=== PATIENT | male | born 1965 | race Caucasian/White ===

== ENCOUNTER 2022-12-20 14:47 | Inpatient (IN) | payer OTHER ==
[~2022-12-20] VITALS: Ht 182.9 cm; Wt 69.1 kg
[2022-12-20 15:59] LABS: Base Excess Venous 0 mmol/L; Bicarbonate Venous 23.8 mmol/L (24.0-30.0); PCO2 Venous 44.2 mmHg (38-42); pH Blood Venous 7.37 (7.34-7.37)
[2022-12-20] MEDS ORDERED: ALBU90OI INH (19:37)
[2022-12-20 20:21] VITALS: BP 113/91
[2022-12-21 02:14] VITALS: BP 96/81
[2022-12-21 05:37] LABS: Albumin, Blood 2.7 g/dL (3.4-5.0); Bilirubin, Total 1.4 mg/dL (0.1-1.0); Bun/Creatinine Ratio 30.4 (12.0-20.0); Calcium, Blood 8.4 mg/dL (8.5-10.1); Creatinine, Blood 0.99 mg/dL (0.60-1.20); Globulin, Blood 2.7 g/dL (2.2-4.0); Magnesium, Blood 1.9 mg/dL (1.6-2.4); Potassium, Blood 3.7 mmol/L (3.5-5.5); Total Protein, Blood 5.4 g/dL (6.4-8.2)
--- NOTE | 2022-12-21 05:49 | NUR ---
SHIFT SUMMARY 56 YR M ADMITTED ON 12/20/22 FOR NEW ONSET OF CHF. FULL CODE. PT WAS VERY DIRTY UPON ARRIVAL AND SHOWERED SHORTLY AFTER. PER BUSINESS LAWYER PT HAS HAD TWO BRIEF EPISODES OF SVT AND 9 SECONDS OF TRIGEMENY. HE IS SET TO HAVE AN ECHO THIS A.M. AND HAS BEEN ASYMPTOMATIC. HE HAS SLEPT FOR MOST OF THIS SHIFT BUT IS ABLE TO USE THE BEDSIDE URINAL INDEPENDANTLY. NO C/O PAIN OR DISCOMFORT THIS SHIFT. HE IS A&O X 4 AND IS PLEASANT AND COOPERATIVE WITH CARE.
[2022-12-21 07:20] VITALS: BP 107/96
--- NOTE | 2022-12-21 10:26 | NUR ---
A. FIB BIOMASS BOILER OPERATOR INFORMED THIS RN THAT PT CONVERTED INTO A.FIB WITH HR 100'S 120'S. PT ASYMPTOMATIC. NOTIFIED & AWARE, NO ORDERS RECEIVED OF YET.
[2022-12-21 10:53] LABS: U Amphetamine Screen Not Detected; U Barbituate Screen Not Detected; U Benzodiazapine Screen Not Detected; U Buprenorphine Screen Not Detected; U Cannabinoids Screen DETECTED; U Cocaine Screen Not Detected; U Methadone Screen Not Detected; U Methamphetamine Screen DETECTED; U Opiates Screen Not Detected; U Oxycodone Screen Not Detected; U Phencyclidine Screen Not Detected; U Propoxyphene Screen Not Detected
[2022-12-21 14:29] VITALS: BP 105/77
--- NOTE | 2022-12-21 18:04 | NUR ---
SHIFT SUMMARY A&O X 4. VSS. TELE SHOWS PT IN & OUT OF A.FIB, LOTS OF ECTOPY, TRI GEM, BIGEM PVC'S & SMALL 6 BEAT RUNS OF SVT & VTACH. PT DENIES CP, NAUSEA, LIGHTHEADEDNESS, DIZZINESS, WEAKNESS OR FATIGUE. MD IS AWARE. ECHO WAS DONE TODAY WITH REPORT ON CHART. PT BEING DIURESED. LASIX GIVEN ORDERED. PT IS ON RA WITH SATS >90%. NO COMPLAINTS TODAY. IS PLEASANT & COOPERATIVE WITH ALL CARE. IS INDEPENDENT IN THE ROOM FOR RESTROOM USE. CALL LIGHT WITHIN REACH, BED IN LOW POSITION.
[2022-12-21 19:39] VITALS: BP 90/56
[2022-12-22 01:54] VITALS: BP 106/89
[2022-12-22 06:37] LABS: BASOPHILS ABSOLUTE AUTO 0.02 K/mm3 (0.00-0.23); BASOPHILS PERCENT AUTO 0 % (0-2); EOSINOPHILS ABSOLUTE AUTO 0.18 K/mm3 (0.00-0.68); EOSINOPHILS PERCENT AUTO 2 % (0-6); Hematocrit 49.1 % (37.0-53.0); Hemoglobin 16.1 g/dL (13.5-17.5); IMMATURE GRAN ABSOLUTE AUTO 0.03 K/mm3 (0.00-0.10); IMMATURE GRAN PERCENT AUTO 0 % (0-1); LYMPHOCYTES ABSOLUTE AUTO 1.44 K/mm3 (0.84-5.20); LYMPHOCYTES PERCENT AUTO 13 % (21-46); MONOCYTES ABSOLUTE AUTO 0.94 K/mm3 (0.16-1.47); MONOCYTES PERCENT AUTO 8 % (4-13); Mean Corpuscular HGB Conc 32.8 g/dL (31.5-36.5); Mean Corpuscular Volume 79 fL (80-100); Mean Platelet Volume 12.1 fL (9.1-12.4); NEUTROPHILS PERCENT AUTO 77 % (41-73); Platelet Count 183 K/mm3 (150-400); RDW Coefficient Variation 14.4 % (11.7-14.2); RDW Standard Deviation 40.9 fL (35.1-46.3); Red Blood Cell Count 6.19 M/mm3 (4.30-5.90); White Blood Cell Count 11.51 K/mm3 (4.00-11.30)
--- NOTE | 2022-12-22 06:45 | NUR ---
PT AO, PLEASANT. INTERMITTENTLY YELLS WHEN ALONE. AFTER HE YELLED I ENTERED PATIENT ROOM AND ASKED IF HE IS FEELING OKAY AND IF I CAN HELP HIM, PATIENT DENIED DISCOMFORT AT THAT TIME. FREQUENT REQUESTS FOR SNACKS. NO PRN MEDS REQUESTED OR GIVEN. TELE IN PLACE, 2 INSTANCES OF SHORT RUNS OF SVT, TACHY UP TO 130'S OCASSIONALLY.
[2022-12-22 06:53] LABS: Albumin, Blood 2.6 g/dL (3.4-5.0); Anion Gap 8 mmol/L (6-16); Blood Urea Nitrogen 33 mg/dL (8-24); CO2, Blood 29 mmol/L (21-32); Calcium, Blood 8.4 mg/dL (8.5-10.1); Chloride, Blood 103 mmol/L (98-108); Creatinine, Blood 0.81 mg/dL (0.60-1.20); Glomerular Filtration Rate 103 (60-); Glucose, Blood 105 mg/dL (70-99); Magnesium, Blood 1.8 mg/dL (1.6-2.4); Phosphorus, Blood 2.5 mg/dL (2.5-4.9); Potassium, Blood 3.4 mmol/L (3.5-5.5); Sodium, Blood 140 mmol/L (136-145)
[2022-12-22 07:46] VITALS: BP 121/83
[2022-12-22 15:36] LABS: Albumin, Blood 2.5 g/dL (3.4-5.0); Anion Gap 7 mmol/L (6-16); Blood Urea Nitrogen 32 mg/dL (8-24); Bun/Creatinine Ratio 39.8 (12.0-20.0); CO2, Blood 31 mmol/L (21-32); Calcium, Blood 7.9 mg/dL (8.5-10.1); Chloride, Blood 102 mmol/L (98-108); Glomerular Filtration Rate 103 (60-); Glucose, Blood 159 mg/dL (70-99); Phosphorus, Blood 2.5 mg/dL (2.5-4.9); Potassium, Blood 3.9 mmol/L (3.5-5.5); Sodium, Blood 140 mmol/L (136-145)
[2022-12-22 15:38] VITALS: BP 103/70
--- NOTE | 2022-12-22 16:24 | NUR ---
SHIFT SUMMARY PATIENT HAS LEFT AMA. IS AWARE. THIS RN TOOK A BREAK AND WHEN RN ARRIVED BACK TO ROUND, PATIENT WAS NOWHERE TO BE FOUND. CALLED SECURITY TO LOCATE PATIENT, PATIENT WAS FOUND IN PARKING LOT ON SECURITY CAMERA, LEFT PROPERTY BY THE TIME SECURITY ARRIVED.
== END 2022-12-22 17:02 | disposition left against medical advice (07) | DRG 280 ==
LOC: ER 14:47 → MEDS 14:48
PROVIDERS: Nurse Practitioner Acute Care; Student in an Organized Health Care Education/Training Program; ADMIT Internal Medicine
DX: I50.21 Acute systolic (congestive) heart failure (principal); J96.01 Acute respiratory failure with hypoxia; I21.A1 Myocardial infarction type 2; I42.7 Cardiomyopathy due to drug and external agent; M21.961 Unspecified acquired deformity of right lower leg; F15.90 Other stimulant use, unspecified, uncomplicated; I34.0 Nonrheumatic mitral (valve) insufficiency; T43.655A Adverse effect of methamphetamines, initial encounter; I07.1 Rheumatic tricuspid insufficiency; F17.210 Nicotine dependence, cigarettes, uncomplicated; Z79.899 Other long term (current) drug therapy
CPT/HCPCS: 36415; 71046; 80053; 80069; 82803; 83735; 84484; 85025; 93005; 93010; 96374; 99285-25; A9270; C8929; G0378; J1650; J1940; Q9957

== ENCOUNTER → 2022-12-20 | Outpatient (CLI) | payer OTHER ==
[~2022-12-20] MED LIST: ALBU90OI INH
[2022-12-20 13:05] LABS: BASOPHILS ABSOLUTE AUTO 0.02 K/mm3 (0.00-0.23); BASOPHILS PERCENT AUTO 0 % (0-2); EOSINOPHILS ABSOLUTE AUTO 0.08 K/mm3 (0.00-0.68); EOSINOPHILS PERCENT AUTO 1 % (0-6); Hematocrit 49.5 % (37.0-53.0); Hemoglobin 16.5 g/dL (13.5-17.5); IMMATURE GRAN ABSOLUTE AUTO 0.05 K/mm3 (0.00-0.10); IMMATURE GRAN PERCENT AUTO 0 % (0-1); LYMPHOCYTES ABSOLUTE AUTO 1.08 K/mm3 (0.84-5.20); LYMPHOCYTES PERCENT AUTO 10 % (21-46); MONOCYTES ABSOLUTE AUTO 0.65 K/mm3 (0.16-1.47); MONOCYTES PERCENT AUTO 6 % (4-13); Mean Corpuscular HGB 26.7 pg (26.0-34.0); Mean Corpuscular HGB Conc 33.3 g/dL (31.5-36.5); Mean Corpuscular Volume 80 fL (80-100); Mean Platelet Volume 11.6 fL (9.1-12.4); NEUTROPHILS ABSOLUTE AUTO 9.42 K/mm3 (1.96-9.15); NEUTROPHILS PERCENT AUTO 83 % (41-73); Platelet Count 193 K/mm3 (150-400); RDW Coefficient Variation 15.6 % (11.7-14.2); RDW Standard Deviation 43.3 fL (35.1-46.3); Red Blood Cell Count 6.17 M/mm3 (4.30-5.90)
[2022-12-20 13:57] LABS: Albumin/Globulin Ratio 1.2 (0.8-1.8); Bilirubin, Total 1.5 mg/dL (0.1-1.0); Calcium, Blood 8.5 mg/dL (8.5-10.1); Globulin, Blood 2.5 g/dL (2.2-4.0); Magnesium, Blood 2.2 mg/dL (1.6-2.4); Potassium, Blood 4.2 mmol/L (3.5-5.5); Total Protein, Blood 5.5 g/dL (6.4-8.2)
== END | disposition home or self-care (01) ==
LOC: LAB 12:59 → LAB SHORT 12:59
PROVIDERS: Emergency Medicine
DX: R60.9 Edema, unspecified (principal)
CPT/HCPCS: 80053; 83735; 83880; 84484; 85025

== ENCOUNTER 2023-01-15 06:38 | Inpatient (IN) | payer OTHER ==
[~2023-01-15] VITALS: Ht 172.7 cm; Wt 76.0 kg
[2023-01-15] VITALS (24 sets, daily range): BP systolic 58–94; BP diastolic 43–77
[2023-01-15 07:04] LABS: BASOPHILS ABSOLUTE AUTO 0.08 K/mm3 (0.00-0.23); BASOPHILS PERCENT AUTO 0 % (0-2); EOSINOPHILS ABSOLUTE AUTO 0.01 K/mm3 (0.00-0.68); EOSINOPHILS PERCENT AUTO 0 % (0-6); Hematocrit 51.3 % (37.0-53.0); Hemoglobin 16.2 g/dL (13.5-17.5); IMMATURE GRAN PERCENT AUTO 1 % (0-1); LYMPHOCYTES ABSOLUTE AUTO 0.66 K/mm3 (0.84-5.20); LYMPHOCYTES PERCENT AUTO 3 % (21-46); MONOCYTES ABSOLUTE AUTO 1.07 K/mm3 (0.16-1.47); MONOCYTES PERCENT AUTO 5 % (4-13); Mean Corpuscular HGB 25.2 pg (26.0-34.0); Mean Corpuscular HGB Conc 31.6 g/dL (31.5-36.5); Mean Corpuscular Volume 80 fL (80-100); NEUTROPHILS ABSOLUTE AUTO 17.96 K/mm3 (1.96-9.15); NEUTROPHILS PERCENT AUTO 90 % (41-73); NRBC ABSOLUTE 0.05 K/mm3 (0.00-0.02); NRBC Auto 0.3 /100 WBC (0.0-0.2); Platelet Count 126 K/mm3 (150-400); RDW Coefficient Variation 15.2 % (11.7-14.2); RDW Standard Deviation 41.8 fL (35.1-46.3); Red Blood Cell Count 6.43 M/mm3 (4.30-5.90); White Blood Cell Count 19.88 K/mm3 (4.00-11.30)
[2023-01-15 07:07] LABS: Base Excess Venous -9.3 mmol/L; PCO2 Venous 42 mmHg (38-42); pH Blood Venous 7.24 (7.34-7.37)
[2023-01-15 07:10] LABS: Calcium, Ionized (POC) 0.89 mmol/L (1.10-1.46); Chloride (POC) 94 mmol/L (98-108); Creatinine (POC) 2.3 mg/dL (0.8-1.3); Glucose (ISTAT POC) 194 mg/dL (70-99); Hemoglobin (POC) 18.4 g/dL (13.5-17.5); Potassium (POC) 5.9 mmol/L (3.5-5.5); Sodium (POC) 124 mmol/L (135-148); Total CO2 (POC) 20 mmol/L (21-32)
[2023-01-15 07:29] LABS: Prothrombin Time Results 47.2 Sec (9.7-11.5)
[2023-01-15 07:30] LABS: Magnesium, Blood 2.6 mg/dL (1.6-2.4)
[2023-01-15 07:34] LABS: Magnesium, Blood 2.6 mg/dL (1.6-2.4)
[2023-01-15 07:42] LABS: International Normalized Ratio 4.92
[2023-01-15 08:09] LABS: Albumin, Blood 2.3 g/dL (3.4-5.0); Bilirubin, Direct 3.8 mg/dL (0.0-0.3); Bilirubin, Indirect 2.1 mg/dL (0.1-0.7); Bilirubin, Total 5.9 mg/dL (0.1-1.0); Bun/Creatinine Ratio 36.1 (12.0-20.0); Calcium, Blood 7.4 mg/dL (8.5-10.1); Creatinine, Blood 1.83 mg/dL (0.60-1.20); Globulin, Blood 2.4 g/dL (2.2-4.0); Phosphorus, Blood 8.4 mg/dL (2.5-4.9); Potassium, Blood 6.1 mmol/L (3.5-5.5); Total Protein, Blood 4.7 g/dL (6.4-8.2)
[2023-01-15 08:11] LABS: Bun/Creatinine Ratio 36.6 (12.0-20.0); Calcium, Blood 7.3 mg/dL (8.5-10.1); Creatinine, Blood 1.83 mg/dL (0.60-1.20); Potassium, Blood 6.1 mmol/L (3.5-5.5)
[2023-01-15 08:35] LABS: Calcium, Ionized (POC) 0.91 mmol/L (1.10-1.46); Chloride (POC) 96 mmol/L (98-108); Creatinine (POC) 2.2 mg/dL (0.8-1.3); Glucose (ISTAT POC) 101 mg/dL (70-99); Hemoglobin (POC) 18.4 g/dL (13.5-17.5); Potassium (POC) 5.6 mmol/L (3.5-5.5); Sodium (POC) 127 mmol/L (135-148); Total CO2 (POC) 19 mmol/L (21-32)
[2023-01-15 08:44] LABS: D-Dimer, Quantitative 19.7 mg/L FEU (0.00-0.52)
[2023-01-15 10:00] LABS: Chloride (POC) 96 mmol/L (98-108); Creatinine (POC) 2.3 mg/dL (0.8-1.3); Glucose (ISTAT POC) 84 mg/dL (70-99); Hemoglobin (POC) 18.7 g/dL (13.5-17.5); Potassium (POC) 5.5 mmol/L (3.5-5.5); Sodium (POC) 127 mmol/L (135-148); Total CO2 (POC) 19 mmol/L (21-32)
[2023-01-15 10:02] LABS: Source, Urine Foley catheter
[2023-01-15 10:11] LABS: Appearance, Urine Hazy (Clear); Bilirubin, Urine Neg (Neg); Blood, Urine 5+ (Neg); Color, Urine Yellow (P-Yellow); Glucose Qualitative, Urine Neg (Neg); Ketones, Urine Neg (Neg); Leukocyte Esterase, Urine 1+ (Neg); Nitrite, Urine Neg (Neg); Protein, Urine 3+ (Neg); Specific Gravity, Urine 1.025 (1.003-1.022); Urobilinogen, Urine 1+ (Normal)
[2023-01-15 10:43] LABS: Hyaline Casts 25-50 /lpf (0-2)
[2023-01-15 10:45] LABS: Red Blood Cells, Urine 25-50 /hpf (0-2)
[2023-01-15 10:47] LABS: Squamous Epithelial Cells Few /hpf (Few)
[2023-01-15 10:48] LABS: Bacteria Many /hpf; Mucus Mod (0-Heavy); Renal Epithelial Rare /hpf (0-Rare); Transitional Epithelial Cells Rare /hpf (0-Rare)
--- NOTE | 2023-01-15 10:51 | NUR ---
1030 PATIENT ARRIVES FROM ED WITH NOREPINEPHRINE INFUSING AT 25MCG, BODY PURPLE FROM TOES TO SCROTUM, ARMS AND ELBOWS. PIV X 3, LEFT SITE X 2 DRAWS BLOOD AND INFUSES WELL, RIGHT HAND DOESN'T DRAW BLOOD. DOPPLAR TO BILATERAL FEET ILLICITS FAINT PULSE AT HIGHEST VOLUME. WOUNDS TO BOTH ELBOWS AND BOTH KNEES, PICTURES TAKEN, AT BEDSIDE. INITIATING DOBUTAMINE.
[2023-01-15 11:50] LABS: PCO2 Arterial 48.4 mmHg (35-45); PO2 Arterial 109 mmHg (80-100); pH Blood Arterial 7.17 (7.35-7.45)
--- NOTE | 2023-01-15 11:50 | NUR ---
Pt admitted to ICU. Was initially brought in by EMS this am for SOB. He was recently diagnosed with CHF while hospitalized last month in December. He ended up leaving AMA, but not before he was made aware of the new diagnosis, and an echo showing 15% EF on 12/21/22. Pt's S/O Yris was present in ED this am, but was asked to step out of the room as pt's condition deteriorated, and he was intubated. Staff were unable to locate Yris after intubation in ED, and pt was then taken to ICU. Attempted to reach Yris by calling the only phone number on the facesheet, but the number apparently belongs to a friend named Rell. Rell was unable to give any information, only that pt has an ex- and 3 sons "in [place]", and states he has no way to get ahold of pt's s/o Yris. Copy of face sheet given to KURT Hardy. Ethics consult placed.
--- NOTE | 2023-01-15 12:04 | NUR ---
Spiritual Care Support. Pt. is being treated by staff. This slide forming machine tender attempted to call NOK (roscoe), but the only number we have is for a neighbor. At Dr. Baird's request I brought Palliative Care nurse Ary to room, who also attempted to contact the Pts. NOEMÍ. This slide forming machine tender searched the hospital waiting rooms for NOEMÍ, but could not locate the individual.
[2023-01-15 12:13] LABS: PCO2 Arterial 51.4 mmHg (35-45); pH Blood Arterial 7.17 (7.35-7.45)
--- NOTE | 2023-01-15 12:30 | NUR ---
PT CONTINUES ON THE VENTILATOR, 7.5 TUBE 23CM AT GUMS. VENT SETTINGS, 14/450 PEEP 5, FIO2 50%. PT IS ON EPINEPHRINE @ 2MCG/MIN, DOBUTAMINE @ 10 MCG/KG/MIN, NOREPINEPHRINE @ 18 MCG/MIN. VANCOMYCIN JUST STARTED. OGT TO LIS, WITH COFFEE GROUND COLORED LIQUID RETURN. MANNING WITH DARK YELLOW, CONCENTRATED RETURN, MINIMAL. BODY CONTINUES WITH PURPLE COLORING PAST KNEES/ELBOWS, SCROTUM. ART LINE AND CENTRAL LINE PLACED BY . PT WITHOUT ANY SEDATING MEDICATIONS AND HAS NOT HAD ANY PURPOSEFUL MOVEMENT OR RESPONSE TO PAINFUL STIMULI. PHOTOS OF WOUNDS TO CHART. ELBOW PROTECTORS PLACED.
[2023-01-15 13:36] LABS: Albumin, Blood 1.9 g/dL (3.4-5.0); Anion Gap 9 mmol/L (6-16); Blood Urea Nitrogen 81 mg/dL (8-24); Bun/Creatinine Ratio 42.6 (12.0-20.0); CO2, Blood 20 mmol/L (21-32); Calcium, Blood 7.1 mg/dL (8.5-10.1); Chloride, Blood 100 mmol/L (98-108); Glomerular Filtration Rate 40 (60-); Glucose, Blood 134 mg/dL (70-99); Phosphorus, Blood 8.4 mg/dL (2.5-4.9); Potassium, Blood 5.8 mmol/L (3.5-5.5); Sodium, Blood 129 mmol/L (136-145)
--- NOTE | 2023-01-15 13:46 | NUR ---
PT'S SIGNIFICANT OTHER IS HERE, PALLIATIVE AND DISPATCHER RADIOACTIVE WASTE DISPOSAL HAVE MET WITH HER. SHE IS ATTEMPTING TO GET INFORMATION TO PT'S ADULT CHILDREN. PT CONTINUES ON EPI, DOBUTAMINE, AND NOREPI WITH BICARB @ 75.
--- NOTE | 2023-01-15 14:09 | NUR ---
Ethics consult order received and processed. Case notes, social history, and prognostic trajectory reviewed. The principal is a 57 y/o male with a history of illicit narcotic use, various reported comorbitities, and a relatively bleak clinical outlook. If it is medically established that he will not benefit proportionately from ongoing invasive treatment or the deployment of life sustaining measures, and a good alex effort has been made to locate a substitute decision maker to no avail, then if two providers attest that the principal has a terminal and irreversible condition, and aggressive treatment will not stabilize him, but only be prolonging, than such care may be licitly discontinued. Thank you for this consult. Ming Lopez ThD, ISAIAS
[2023-01-15 14:27] LABS: pH Blood Arterial 7.32 (7.35-7.45)
--- NOTE | 2023-01-15 15:08 | NUR ---
Spiritual Care Visit. Pt. is intubated and not responsive. Pts. roscoe' is present and displayed evidence of grief as she is attempting to contact NOK. Crowefren' uses FB messenger to communicate as she does not have a phone number. Palliative Care nurses have been present. Prayed with Pt. and cristina. Facilitated life review. Crowefren' displays evidence of grief that comes in waves. Will conintue to be availabel to Pt. and cristina.
--- NOTE | 2023-01-15 15:26 | NUR ---
PT CONTINUES WITH LOW BP, ATTEMPTS TO TITRATE THE NOREPINEPHRINE TO KEEP PRESSURE >60 MAP. PURPLE COLORING CONTINUES, DIFFICULT TO OBTAIN A GOOD OXYGEN SATURATION WITH THE POOR PERFUSION. LACTIC ACID IS TRENDING DOWNWARD. PT WITH NO COUGH OR GAG UPON ORAL CARE, PT REMAINS WITHOUT ANY PURPOSEFUL MOVEMENT, NO WITHDRAWAL TO PAINFUL STIMULI. S/O IN ROOM, TEARFUL. ASKED IF SHE HAS SOMEONE WE COULD CALL FOR HER AND SHE SAYS SHE IS FINE. SHE HAS FALLEN ASLEEP.
--- NOTE | 2023-01-15 15:52 | NUR ---
pt having guppy like breathing with tremulous lower jaw on inspiratory phase. called with update on the reading of the echo showing EF 5-10% and a large LV thrombus. No change in patient status.
--- NOTE | 2023-01-15 16:49 | NUR ---
Called to ICU to assist with finding a decision maker for Yu. Yu is currently intubated on a vent without sedation. He is currently on three pressors. He is mottled to bilat lower extremities as well as hands and forearms. Yris is at the bedside, is also at the bedside. Yris is tearful and appears overwhelmed. Yris states that she and Yu wanted to move to [place] but they were unable to due to Yu being on parole. Emotional support provided. Yris has been attempting to message pt's sister, nephew and sons who reportedly live in [place]. Yris has never met Yu's family and has no other way other than [employer] Messenger to get a hold of them. While this television writer was at the bedside, pt's nephew messaged Yris back. Yris messaged nephew PC office phone number for joe to call. Returned to PC office. Received a call from Vernell Duckworth (pt's sister) ph# [phone]. Vernell reports Yu has not been well for many years. Updated Vernell on his status. Discussed code status, Vernell requests that Yu be a DNR. Vernell reports that both of their parents and a brother are . She is the only sibling he has left. Vernell states that Yu has three sons, Soren, Ricardo and Jack. [place] [facility] [place] [facility] and she will attempt to message Soren and Ricardo for them to call PC nurse for an update. Vernell reports Yu's family is in the [place], [place] area. Vernell's wishes for her brother's care at this time are for DNR, to remain on vent with current supportive treatments. Vernell verbalized understanding of how very ill Yu is at this time. Received a phone call from Rashad, pt's nephew, and gave him an update. Rashad's number is [phone]. Rashad stated that he agreed with his mom's wishes for his uncle to be a DNR. Rashad states that the family is in a group message chat and he will have his cousins contact PC RN. Spoke with Dr. Baird and updated him on family contacts and their desire for Yu to be a DNR. Order for DNR placed per Dr. Baird's request. Received a call from Ricardo Saleh, pt's son. Ricardo's ph # is: [phone]. He was updated on pt's condition. Ricardo states that he is in agreement with treatment plan of DNR and vent at this time. Ricardo states he cannot afford a plane ticket to come to [place]. Gave Ricardo the ICU nurses station number and encouraged him to call for updates. Also told him he can call and the nurses will put the phone to Yu's ear. Ricardo is aware that Yu is unresponsive and unable to talk at this time. Ricardo reports he will update his brother, Soren, and will have Soren call if he would like an update directly from staff. Updated nursing on plan of care. Contact phone numbers for Rashad Matt and Ricardo placed on chart. This television writer does not have the phone number for Soren at this time. PC to continue to follow for assistance with advanced care planning and family support for Yu and his family.
[2023-01-15 16:54] LABS: PCO2 Arterial 35.8 mmHg (35-45); PO2 Arterial 64.7 mmHg (80-100); pH Blood Arterial 7.39 (7.35-7.45)
--- NOTE | 2023-01-15 18:20 | NUR ---
SUMMARY: PT CONTINUES ON VENTILATOR, RATE 14, 450 vT, PEEP 5, FIO2 55%, MAINTAINING SATS AROUND 90%. NEURO: PT OPENED EYES ONCE UPON STIMULUS, HE MOVED LEFT ARM AND LEFT LEG INDE- PENDENTLY WITHOUT COMMAND, RIGHT ARM SLIGHT MOVEMENT. NO PURPOSEFUL MOVEMENT NOTED. CONTINUES WITH GUPPY BREATHING AND TREMULOUS LOWER JAW ON INSPIRATION. DOES NOT RESIST TURNS OR TREATMENT. CV: NOREPINEPHRINE @ 30MCG, EPINEPHRINE @ 4MCG, DOBUTAMINE @ 10MCG, CONTINUES WITH COOL SKIN AND MOTTLING UP BOTH ARMS AND BOTH LEGS, PETECHIAE T/O THIGHS AND PARTS OF ABDOMEN, PULSES ON FEET BY DOPPLAR ONLY. RESP: REMAINS SLIGHTLY COARSE, DIFFICULT TO GET READINGS FOR BIOXEMETRY, MAINTAINS LOW 90S. GI: OGT WITH COFFEE GROUND LIQUID RETURN, 750ML OUT THIS SHIFT. : TEMP MANNING AT GRAVITY DRAINAGE WITH AROUND 500ML OUT, DARK YELLOW SOCIAL: SEE NOTES OF PALLIATIVE AND SPIRITUAL CARE. GIRLFRIEND AT BEDSIDE.
[2023-01-15 19:34] LABS: PCO2 Arterial 36.6 mmHg (35-45); PO2 Arterial 65.7 mmHg (80-100)
--- NOTE | 2023-01-15 21:36 | NUR ---
ASSUMED CARE AT 1900 PATIENT IS INTUBATED AND STARTED ON VERSED DRIP. PATIENT WOULD BECOME AGITATED KICKING LEGS AND REACHING FOR TUBE. SEDATION ALSO NEEDED FOR VENT COMPLIANCE. MOVES ALL EXTREMITIES AND LOCALIZES TO PAIN, NO EYE OPENING AND NO EYE MOVEMENT. 02 SATS 95% ON VENT, AC VC 14/450/8/75, RR 20s. PEEP WAS INCREASED DUE TO PATIENTS 02 SATS DROPPING TO THE 70s. THICK RED SPUTUM SUCTIONED FROM ETT. LS COARSE. HR SR-ST 90s-120s. BP HYPOTENSIVE, MAINTAINING MAP >60, LEVO, EPI, DOBUTAMINE INF. OG WITH LARGE AMOUNTS OF DARK BLACK/BROWN OUTPUT, TO LIS. TEMP MANNING PATENT AND DRAINING DARK YELLOW URINE WITH SEDIMENT TO GRAVITY. FAMILY/FRIEND AT BEDSIDE. CBG INCREASING, LOW SLIDING SCALE ADDED. DR. TURNER NOTIFIED OF CRITICAL LABS.
[2023-01-16] VITALS (9 sets, daily range): BP systolic 65–97; BP diastolic 46–74
--- NOTE | 2023-01-16 02:17 | NUR ---
ATTEMPTED TURNING PATIENT TO RIGHT SIDE, PATIENT BECAME MORE HYPOTENSIVE. TURNED PATIENT BACK TOWARDS THE LEFT AND ABLE TO MAINTAIN A MAP OF 60. UNABLE TO TURN PATIENT DUE TO HIS BP AT THIS POINT
[2023-01-16 05:00] LABS: PCO2 Arterial 41.6 mmHg (35-45); PO2 Arterial 92.1 mmHg (80-100); pH Blood Arterial 7.43 (7.35-7.45)
[2023-01-16 05:56] LABS: Hematocrit 44.8 % (37.0-53.0); Hemoglobin 15.1 g/dL (13.5-17.5); Mean Corpuscular HGB 25.4 pg (26.0-34.0); Mean Corpuscular HGB Conc 33.7 g/dL (31.5-36.5); Mean Platelet Volume 12.1 fL (9.1-12.4); NRBC ABSOLUTE 0.03 K/mm3 (0.00-0.02); NRBC Auto 0.3 /100 WBC (0.0-0.2); Platelet Count 87 K/mm3 (150-400); RDW Coefficient Variation 14.2 % (11.7-14.2); RDW Standard Deviation 37.9 fL (35.1-46.3); Red Blood Cell Count 5.95 M/mm3 (4.30-5.90); White Blood Cell Count 11.34 K/mm3 (4.00-11.30)
--- NOTE | 2023-01-16 05:56 | NUR ---
SHIFT SUMMARY PATIENT REMAINS INTUBATED AND SEDATED ON VERSED. COUGH AND GAG PRESENT, LOCALIZES TO PAIN. NO EYE MOVEMENT, PUPILS EQUAL AND REACTIVE. 02 SATS 94% ON VENT 14/450/8/60%, RR 27. HR SR 90s-130s, BP HYPOTENSIVE, LEVOPHED TITRATED UP, EPI AND DOBUTAMINE REMAIN INF. OG WITH LARGE AMOUNTS OF DARK BROWN/BLACK OUTPUT, TO LIS. TEMP MANNING PATENT AND DRAINING STELLA URINE WITH SEDIMENT. UNABLE TO REPOSITION PATIENT, WHEN MOVED BP DROPS, DOES BEST TURNED TOWARDS THE LEFT. GIRLFRIEND REMAINS AT BEDSIDE.
[2023-01-16 06:09] LABS: Mean Corpuscular Volume 75 fL (80-100)
[2023-01-16 06:26] LABS: BAND PERCENT MAN 36 % (0-8); BASOPHILS PERCENT MAN 0 % (0-2); EOSINOPHILS PERCENT MAN 0 % (0-6); LYMPHOCYTES ABSOLUTE MAN 0.11 K/mm3 (0.84-5.20); LYMPHOCYTES PERCENT MAN 1 % (21-46); MONOCYTES ABSOLUTE MAN 0.22 K/mm3 (0.16-1.47); MONOCYTES PERCENT MAN 2 % (4-13); NEUTROPHILS ABSOLUTE MAN 10.99 K/mm3 (1.96-9.15); SEG NEUTROPHILS PERCENT MAN 61 % (41-73); TOTAL CELLS COUNTED 100
[2023-01-16 06:32] LABS: Prothrombin Time Results 43.2 Sec (9.7-11.5)
[2023-01-16 06:39] LABS: Albumin, Blood 1.6 g/dL (3.4-5.0); Albumin/Globulin Ratio 0.8 (0.8-1.8); Bilirubin, Total 6.9 mg/dL (0.1-1.0); Bun/Creatinine Ratio 44.2 (12.0-20.0); Calcium, Blood 6.3 mg/dL (8.5-10.1); Creatinine, Blood 2.08 mg/dL (0.60-1.20); Globulin, Blood 2.1 g/dL (2.2-4.0); International Normalized Ratio 4.48; Potassium, Blood 5.3 mmol/L (3.5-5.5); Total Protein, Blood 3.7 g/dL (6.4-8.2)
--- NOTE | 2023-01-16 08:25 | NUR ---
CARE OF PT ASSUMED AT 0700. PT ON VERSED GTT 2MG/HR FOR VENT KAMERON. PT ON MULTIPLE PRESSORS TO KEEP MAP AT OR .60. LEVOPHED AT 30MCG/MIN, EPI INITIALLY AT 4MCG/MIN AND HAS BEEN TITRATED UP TO 6MCG/MIN. DOBUTAMINE IS AT 10MCG/KG/MIN PER DR TURNER ORDER. D5 BICARB GTT AT 75CC/HR. PT CHEWS ON ORAL CARE SUCTION STRAW AND HAS COUGH. ABSENT GAG. PUPILS 3/3MM EQUAL AND SLUGGISH, NOT FIXED, BUT PT LACKS CORNEAL REFLEX. PT DOES GRIMACE TO NOXIOUS/PAINFUL STIMULI. ATTEMPTED TO TURN PT TO RIGHT SIDE AND ALSO TO BACK. MAP DROPS SIGNIFICANTLY WHILE ON RIGHT SIDE. PT PLACED BACK ON LEFT SIDE. PT IS WARM BUT HAS POOR PERIPHERAL PERFUSION. CAP REFILL>3SEC, DUSKY TOES AND FINGERS. CRITICAL INR AND +BLOOD CX'S CALLED IN TO DR TURNER. VENT 14/450/60%/8. PT'S RATE AROUND 25. SATS >90%. PT HAS SIGNIFICANT BRUISING/NECROTIC/SWELLING TISSUE TO SCROTUM/PENIS. DR TURNER GIVEN FULL UPDATE THIS AM AND IS AT BEDSIDE NOW UPDATING PT'S S/O.
--- NOTE | 2023-01-16 09:28 | NUR ---
DR TURNER TO CALL PT'S SISTER THIS AM TO UPDATE HER. VASOPRESSIN GTT STARTED.
--- NOTE | 2023-01-16 12:01 | NUR ---
PT'S SISTER STEVO UPDATED, PHONE CALL TRANSFERED TO ROOM AND PHONE HELD TO PT'S EAR SO THAT HIS SISTER COULD SPEAK TO HIM. PT'S SISTER CALLIE IS TRAVELING FROM [place] TO SEE PT. INDENTATION WITH SOME DISCOLORATION NOTED TO FOREHEAD UNDER SAT PROBE DESPITE MOVING PROBE Q2HRS. PROBE REMOVED, NOSE PROBE PLACED; WILL CHECK AND MOVE Q1HR. EPI GTT DOWN TO 4MCG. PT OCC WITH A VERY BRIEF SPIKE IN HR (SINUS) UP TO 150'S (DR TURNER AWARE). GROSS MOVEMENT NOTED TO BLE DURING BATH. PT CONTINUES TO GRIMACES W NOXIOUS STIMULI, SUCKS ON ORAL CATH DURING ORAL CARE. FIO2 DOWN TO 50%.
--- NOTE | 2023-01-16 12:49 | NUR ---
Visited Yu's room. His girlfriend is not currently at the bedside. Nursing is giving Yu a bed bath. Received an update from nursing. Per nursing apparently pt has another sister, Maldonado, who is coming from [place] to visit. This sister was not mentioned when this commercial insurance underwriter spoke with pt's sister Vernell yesterday. PC to continue to follow to assist with advanced care planning prn.
--- NOTE | 2023-01-16 13:42 | NUR ---
PT WITH INCREASED ECTOPY, HR JUMPS TO 140, SHORT NM, DROPPED P WAVES, PVC'S, PAC'S. BP UNCHANGED. EKG COMPLETED. DR TURNER CALLED AND UPDATED. ONE TIME ORDER OF DIG ORDERED.
--- NOTE | 2023-01-16 16:56 | NUR ---
PT'S SISTER'S CHIN AND CALLIE ARRIVED AND ARE AT BEDSIDE. UPDATE GIVEN. PER CALLIE, PT'S SON TERESA IS TRYING TO FLY DOWN FROM [place]. LEVOPHED AT 24MCG, EPI AT 2MCG. HEART RHTHYM INITIALLY IMPROVED AFTER DIG DOSE, BUT NOW CONTINUES TO INCREASE UP TO 140'S, WITH INCREASED ECTOPY WHEN HR LOWER; 90-110. SPO2 HAS BEEN DIFFICULT TO OBTAIN AT TIMES, BUT HAS AVERAGED BETWEEN 92-98%.
--- NOTE | 2023-01-16 17:48 | NUR ---
DR TURNER CALLED TO GIVE UPDATE, INCLUDING PERSIST. ECTOPY AND HR UP TO 150'S. EPI PLACED ON STANDY PER DR TURNER, FOLLOWED BY DOBUTAMINE DECREASED TO 7.5MCG.
--- NOTE | 2023-01-16 18:42 | NUR ---
LEVOPHED AT 22MCG, EPI OFF, VASO AT 0.04 UNITS, DOBUTAMINE AT 7.5MCG, VERSED GTT AT 2MG/HR, D5 BICARB AT 75/HR. MAP >65. HEART RATE AND RHYTHM IRREGULAR WITH ECTOPY(PAC'S, PVC'S, SHORT MO, MULTIFOCAL P WAVES, POSSIBLE BRIEF AFIB, RATE HIGH 160 (VERY BRIEF). HR OFTEN INCREASES TO 130'S-140'S FOR SEVERAL MINUTES, THEN DECREASES BACK TO 100 W ECTOPY. ONE TIME DIG GIVEN WITHOUT MUCH CHANGE. SPO2 DIFFICULT TO OBTAIN. SEVERAL PLACES ATTEMPTED (FOREHEAD, NOSE, FINGERS, EARS). OCC SPO2 WITH GOOD WAVE FORM SHOWS SPO2 92-98%. SKIN IN WARM W POOR CAP REFILL. CYANOTIC TOES/FINGERS HAVE BEEN IMPROVING, MOTTLING IMPROVING. SCROTUM AND PENIS REMAIN SEVERLY SWOLLEN WITH RED AND NECROTIC AREAS. U/O >1000 THIS SHIFT. DARK RED/BLACK OG OUTPUT HAS DECREASED THIS SHIFT; PROTONIX STARTED. FIO2 DOWN TO 50%. PT'S TWO SISTERS AT BEDSIDE. NEW SORE NOTED TO FOREHEAD FROM SAT PROBE. PT STILL DOES NOT TOLERATE TURNS TO RIGHT(MAP DROPS TO 40). UNABLE TO TURN PT TO EXAM BACKSIDE D/T SEVERE INSTABILITY.
--- NOTE | 2023-01-16 20:00 | NUR ---
ASSUMED CARE AT 1900 PATIENT IS INTUBATED AND SEDATED ON VERSED. NO GAG OR COUGH, EXTREMITIES FLACCID. PUPILS EQUAL AND REACTIVE, NO CORNEAL REFLEX. 02 SATS 94% ON VENT 14/10 PEEP 8 FI02 50%, RR 19. HR SR 90s-130s AT TIMES UP TO 180s. PVCs AND PACs. BP HYPOTENSIVE, LEVO, VASO AND DOBUTAMINE INF, EPI REMAINS ON STANDBY. OG TO LIS DARK BROWN OUTPUT. TEMP MANNING PATENT AND DRAINING TO GRAVITY DARK STELLA URINE. PATIENT POSITIONED TO THE LEFT, TOLERATES THIS SIDE WELL. FAMILY AT BEDSIDE.
--- NOTE | 2023-01-16 20:20 | NUR ---
ATTEMPTED TO CALL S/O NITA, UNABLE TO REACH HER, FAMILY HAS ATTEMPTED TO CONTACT HER WELL.
--- NOTE | 2023-01-16 21:59 | NUR ---
FAMILY DECIDED TO WITHDRAW CARE, SISTERS CHIN AND CALLIE AT BEDSIDE, SISTER JAYDON AND SON TERESA ON THE PHONE, ALL AGREE WITH THE PLAN FOR COMFORT CARE. DR. TURNER TO ROOM AND SPOKE WITH FAMILY. PATIENT EXTUBATED AT 2135 AND ALL PRESSORS AND SEDATION OFF. PATIENT MEDICATED FOR AIR HUNGER. FAMILY REMAINS AT BEDSIDE AND AGREE THE PATIENT APPEARS COMFORTABLE.
--- NOTE | 2023-01-17 07:15 | NUR ---
CARE ASSUMPTION DURING BEDSIDE SHIFT REPORT Naresh Kahn RN THE PT IS LYING IN BED SLEEPING COMFORTABLY IN NO DISTRESS. PT HAS MINOR AGONAL RESPIRATIONS BUT PT IS NOT TACHYPNEIC AND APPEARS COMFORTABLE. PT HOOKED TO MONITOR IN CC MODE, MONITOR SHOWING SPO2 IN THE 70'S, MEAN BP IN THE 50'S, AND HR IN THE 100'S. CARE ASSUMED AT THIS TIME.
--- NOTE | 2023-01-17 11:53 | NUR ---
Spiritual Care check in. Pt. is on confort care and is not responsive. There are no visitors present. Prayed for Pt. in his room. Will continue to be available to Pt. a/o family.
--- NOTE | 2023-01-17 14:32 | NUR ---
Spiritual Care - EOL - Family Request Pt. in room 338 had passed. Pts. sister and KATHARINA are present and requested spiritual care. Facilitated some life review. Sister displays evidence of sorrow and grief as she has now lost all of her brothers. Listen with empathy, and a calming presence. Offer blessing over the Pt. and prayers for the family. Pastoral care and grief support are given. Sister displays evidence of hope through her tears. Family had already determined a local home and let the nursing staff know. Family verbalized gratitude for the spiritual care visit, gathered the Pts. belongings and departed. This head irrigator has let the charge nurse know that no other family are coming.
--- NOTE | 2023-01-17 16:18 | NUR ---
PATIENT AT 1405, VERIFIED BY AUSCULTAION BY 2 RN'S. SISTER DUST AT BEDSIDE WITH HER AND IS NOTIFYING THE REST OF THE FAMILY. EMPLOYMENT INSTRUCTIONAL ASSOCIATE CALLED TO COME SPEAK WITH FAMILY. CHARGE NURSE AND DR TRAN NOTIFIED.
--- NOTE | 2023-01-17 19:52 | NUR ---
PATIENT PICKED [facility] BY [facility] AT [facility].
== END 2023-01-17 14:05 | DRG 871 ==
LOC: ER 06:38 → ICUE 09:11 → MEDS 01-17 08:50
PROVIDERS: Internal Medicine Critical Care Medicine; Student in an Organized Health Care Education/Training Program; ADMIT Internal Medicine
PROC: 3E033XZ Introduction of Vasopressor into Peripheral Vein, Percutaneous Approach (ICD-10-PCS; principal; 2023-01-15)
PROC: 3E03329 Introduction of Other Anti-infective into Peripheral Vein, Percutaneous Approach (ICD-10-PCS; 2023-01-15)
PROC: 5A09357 Assistance with Respiratory Ventilation, Less than 24 Consecutive Hours, Continuous Positive Airway Pressure (ICD-10-PCS; 2023-01-15)
PROC: 0T9B70Z Drainage of Bladder with Drainage Device, Via Natural or Artificial Opening (ICD-10-PCS; 2023-01-15)
PROC: 4A133R1 Monitoring of Arterial Saturation, Peripheral, Percutaneous Approach (ICD-10-PCS; 2023-01-15)
PROC: 04HY32Z Insertion of Monitoring Device into Lower Artery, Percutaneous Approach (ICD-10-PCS; 2023-01-15)
PROC: 4A133B1 Monitoring of Arterial Pressure, Peripheral, Percutaneous Approach (ICD-10-PCS; 2023-01-15)
PROC: 0BH17EZ Insertion of Endotracheal Airway into Trachea, Via Natural or Artificial Opening (ICD-10-PCS; 2023-01-15)
PROC: 4A133J1 Monitoring of Arterial Pulse, Peripheral, Percutaneous Approach (ICD-10-PCS; 2023-01-15)
PROC: 05HY33Z Insertion of Infusion Device into Upper Vein, Percutaneous Approach (ICD-10-PCS; 2023-01-15)
DX: A41.50 Gram-negative sepsis, unspecified (principal); D65 Disseminated intravascular coagulation [defibrination syndrome]; J18.9 Pneumonia, unspecified organism; J96.01 Acute respiratory failure with hypoxia; R65.21 Severe sepsis with septic shock; I21.A1 Myocardial infarction type 2; G93.41 Metabolic encephalopathy; K72.00 Acute and subacute hepatic failure without coma; N17.9 Acute kidney failure, unspecified; I42.7 Cardiomyopathy due to drug and external agent; E87.21 Acute metabolic acidosis; E87.1 Hypo-osmolality and hyponatremia; I50.22 Chronic systolic (congestive) heart failure; I51.3 Intracardiac thrombosis, not elsewhere classified; Z51.5 Encounter for palliative care; Z66 Do not resuscitate; E83.51 Hypocalcemia; R57.0 Cardiogenic shock; E87.5 Hyperkalemia; E16.2 Hypoglycemia, unspecified; T43.655A Adverse effect of methamphetamines, initial encounter; F17.210 Nicotine dependence, cigarettes, uncomplicated; Z88.1 Allergy status to other antibiotic agents; Z88.8 Allergy status to other drugs, medicaments and biological substances; Z98.890 Other specified postprocedural states; Z79.899 Other long term (current) drug therapy; Z78.1 Physical restraint status
CPT/HCPCS: 31500; 36556; 36600; 36620; 51702; 71045; 80047; 80048; 80053; 80069; 81001; 82248; 82330; 82803; 82947; 83605; 83735; 83880; 84100; 84145; 84484; 85014; 85025; 85379; 85384; 85610; 85730; 87040; 87070; 87076; 87077; 87086; 87186; 87205; 93005; 93010; 93308; 93321; 94002; 94003; 94640; 94644; 94660; 94664; 96365-59; 96366-59; 96368; 96375-59; 99285-25; A9270; C1751; C9113; J0171; J0612; J1160; J1250; J1815; J1940; J2060; J2250; J2370; J2543; J3370; J7030; J7040; J7050; J7060; J7070; J7799